=== PATIENT | male | born 1935 | race Caucasian/White ===

== ENCOUNTER 2016-08-22 20:13 | Emergency (ER) | payer OTHER ==
[2016-08-22 20:20] VITALS: BP 151/75; PULSE 65; TEMP 97.7; BMI 27.6
[2016-08-22] MEDS ORDERED: METOCLOPRAMIDE HCL INJECTION 10 MG/2 ML VIAL IVPUSH ONE (20:44)
--- NOTE | 2016-08-22 21:13 | PDOC ---
History of Present Illness - General History Source: Patient, Spouse, Old Records Exam Limitations: No Limitations - History of Present Illness Initial Comments: 08/22/16 21:21 The patient is an 80 year old male with past medical history of hypertension, NIDDM, hypothyroidism, GERD, cholecystectomy, who presents to the ED with complaints of frontal bilateral headache for the past few weeks. As per the patients , this symptom began as a lightheaded/dizzy feeling which has progressed into a headache and is now accompanied with blurred vision. Two weeks ago the patient was seen at [place] for similar symptoms and had a head CT performed which was unremarkable. He denies any recent illness, fever, chills , nausea, vomiting, diarrhea, cough, shortness of breath, chest pain, or urinary symptoms. PCP: Pam Queen <Lynne Méndez - Last Filed: 08/22/16 23:04> <Julio Lyons - Last Filed: 08/22/16 23:23> - General Chief Complaint: Headache Stated Complaint: HEADCAHE/STOMACH PAIN/LEGS NUMB Time Seen by Provider: 08/22/16 20:26 Past History <Lynne Méndez - Last Filed: 08/22/16 23:04> - Past Medical History Diabetes: Yes GI Disorders: Yes HTN: Yes Hypercholesterolemia: Yes Thyroid Disease: Yes (hypo) - Surgical History Cholecystectomy: Yes - Psycho/Social/Smoking Cessation Hx Anxiety: No Suicidal Ideation: No Smoking History: Never smoked Have you smoked in the past 12 months: No Information on smoking cessation initiated: No Hx Alcohol Use: No Drug/Substance Use Hx: No Substance Use Type: None <Julio Lyons - Last Filed: 08/22/16 23:23> - Past Medical History Allergies/Adverse Reactions: Allergies Allergy/AdvReac Type Severity Reaction Status Date / Time No Known Allergies Allergy Verified 08/22/16 20:20 Home Medications: Ambulatory Orders Budesonide [Pulmicort Flexhaler] 180 mcg IH BID PRN 08/18/16 Gabapentin 100 mg PO HS 08/18/16 Levothyroxine [Synthroid -] 75 mcg PO DAILY 08/18/16 Metoprolol Tartrate 12.5 mg PO AM 08/18/16 Metoprolol Tartrate 25 mg PO HS 08/18/16 Pantoprazole Sodium [Protonix] 40 mg PO DAILY 08/18/16 Sitagliptin Phosphate [Januvia] 50 mg PO DAILY 08/18/16 Valsartan [Diovan] 320 mg PO DAILY 08/18/16 Diphenhydramine HCl [Benadryl -] 50 mg PO Q8H PRN #28 capsule 08/22/16 Metoclopramide HCl [Reglan] 10 mg PO Q6H PRN #20 tablet 08/22/16 Review of Systems - Review of Systems Able to Perform ROS?: Yes Comments:: 08/22/16 21:22 GENERAL/CONSTITUTIONAL: No fever or chills. No weakness. HEAD, EYES, EARS, NOSE AND THROAT: No ear pain or discharge. No sore throat. CARDIOVASCULAR: No chest pain or shortness of breath. RESPIRATORY: No cough, wheezing, or hemoptysis. GASTROINTESTINAL: No nausea, vomiting, diarrhea or constipation. GENITOURINARY: No dysuria, frequency, or change in urination. MUSCULOSKELETAL: No joint or muscle swelling or pain. No neck or back pain. SKIN: No rash NEUROLOGIC: Present: headache, blurred vision No vertigo, loss of consciousness, or change in strength/sensation. ENDOCRINE: No increased thirst. No abnormal weight change. HEMATOLOGIC/LYMPHATIC: No anemia, easy bleeding, or history of blood clots. ALLERGIC/IMMUNOLOGIC: No hives or skin allergy. All Other Systems: Reviewed and Negative <yLnne Méndez - Last Filed: 08/22/16 23:04> *Physical Exam - Vital Signs Last Vital Signs Temp Pulse Resp BP Pulse Ox 97.7 F 65 18 151/75 100 08/22/16 20:18 08/22/16 20:18 08/22/16 20:18 08/22/16 20:18 08/22/16 20:18 - Physical Exam Comments: 08/22/16 21:23 GENERAL: Awake, alert, and fully oriented, in no acute distress HEAD: No signs of trauma EYES: PERRLA, EOMI, sclera anicteric, conjunctiva clear ENT: Auricles normal inspection, hearing grossly normal, nares patent, oropharynx clear without exudates. Moist mucosa NECK: Normal ROM, supple, no lymphadenopathy, JVD, or masses LUNGS: Breath sounds equal, clear to auscultation bilaterally. No wheezes, and no crackles HEART: Regular rate and rhythm, normal S1 and S2, no murmurs, rubs or gallops ABDOMEN: Soft, nontender, normoactive bowel sounds. No guarding, no rebound. No masses EXTREMITIES: Normal range of motion, no edema. No clubbing or cyanosis. No cords, erythema, or tenderness NEUROLOGICAL: Cranial nerves II through XII grossly intact. Normal speech, normal gait SKIN: Warm, Dry, normal turgor, no rashes or lesions noted. <[email or web address] - Last Filed: 08/22/16 23:04> - Vital Signs Last Vital Signs Temp Pulse Resp BP Pulse Ox 97.7 F 65 18 151/75 100 08/22/16 20:18 08/22/16 20:18 08/22/16 20:18 08/22/16 20:18 08/22/16 20:18 <Julio Lyons - Last Filed: 08/22/16 23:23> Heart Score/ECG Review - ECG Intrepretation Comment:: 08/22/16 23:04 ECG obtained at 22:54 Normal sinus, nonspecific T wave abnormality, prolonged QT Vent rate: 61 bpm <[email or web address] - Last Filed: 08/22/16 23:04> ED Treatment Course - LABORATORY CBC & Chemistry Diagram: 08/22/16 21:06 08/22/16 21:06 - ADDITIONAL ORDERS Additional order review: 08/22/16 21:06 RBC 4.66 MCV 88.9 MCHC 33.5 RDW 14.9 MPV 9.8 Neutrophils % 61.0 Lymphocytes % 21.1 D Monocytes % 12.5 H Eosinophils % 4.5 Basophils % 0.9 - RADIOLOGY Radiograph Interpretation: 08/22/16 21:[address] as reviewed by Dr. Garcia who reports no definite CT evidence of acute pathology. Mild periventricular and subcortical chronic microvascular ischemic changes are noted. A small right parietal cortical is seen which is probably post inflammatory/post infectious. <[email or web address] - Last Filed: 08/22/16 23:04> - LABORATORY CBC & Chemistry Diagram: 08/22/16 21:06 08/22/16 21:06 - RADIOLOGY Radiology Studies Ordered: Category Date Time Status HEAD CT WITHOUT CONTRAST [CT] Stat CT Scan 08/22/16 20:40 Completed CHEST X-RAY PORTABLE* [RAD] Stat Radiology 03/17/17 20:42 Ordered <Julio Lyons - Last Filed: 08/22/16 23:23> Medical Decision Making - Medical Decision Making This is an 80yo m with ongoing headache and no other complaints; his CT head is negative and PE reassuring. He has a negative evaluation and is feeling significant improvement of the headache, which has been ongoing for the last two days. He also reports pain of b/l legs with intermittent numbness. He suffers from DM and I have explained to him he has peripheral neuropathy, which he is already taking neurontin for but only 100mg once daily. I have encouraged him to increase to dose at least two times per day and to have follow up with neurology and his PMD within 24 hours. I have encouraged aggressive hydration, nutrition as tolerated and return if there is any change otherwise. 08/22/16 23:16 <Julio Lyons - Last Filed: 08/22/16 23:23> *DC/Admit/Observation/Transfer - Attestations Scribe Attestion: 08/22/16 21:23 Documentation prepared by Lynne Méndez, acting as biomedical repair technician for Julio Lyons MD.. <Lynne Méndez - Last Filed: 08/22/16 23:04> - Discharge Dispostion Admit: No Decision to Admit order Date/Time: 08/22/16 23:20 <Julio Lyons - Last Filed: 08/22/16 23:23> Diagnosis at time of Disposition: Migraine Qualifiers: Migraine type: without aura Status migrainosus presence: without status migrainosus Intractability: not intractable Qualified Code(s): G43.009 - Migraine without aura, not intractable, without status migrainosus - Discharge Dispostion Disposition: HOME Condition at time of disposition: Good - Prescriptions Prescriptions: Diphenhydramine HCl [Benadryl -] 50 mg PO Q8H PRN #28 capsule PRN Reason: Headache Metoclopramide HCl [Reglan] 10 mg PO Q6H PRN #20 tablet PRN Reason: Headache - Referrals Referrals: Pam Queen MD [Primary Care Provider] - - Patient Instructions Additional Instructions: At this time, your symptoms are likely related to a migraine-type headache and the medication prescribed should be helpful. Please follow up with your PMD within the next 24 hours for reevalaution. Also, as discussed, the dosing of the GABApentin (Neurontin) should be adjusted to help with your ongoing leg symptoms. If there is any change otherwise in your symptoms, please return immediately to the ED.
[2016-08-22 21:19] LABS: BASOPHIL 0.9 % (0-2.0); EOSINOPHIL 4.5 % (0-4.5); MCH 29.8 pg (25.7-33.7); MCHC 33.5 g/dl (32.0-35.9); MEAN CELL VOLUME 88.9 fl (80-96); MEAN PLT VOLUME 9.8 fl (7.5-11.1); PLATELET COUNT 186 K/MM3 (134-434); RDW 14.9 % (11.9-15.9); WHITE BLOOD COUNT 5.3 K/mm3 (4.0-10.0)
[2016-08-22 21:23] LABS: URINE APPEARANCE CLEAR; URINE BILIRUBIN NEGATIVE (NEGATIVE); URINE BLOOD NEGATIVE (NEGATIVE); URINE COLOR STRAW; URINE GLUCOSE (UA) NEGATIVE (NEGATIVE); URINE KETONE NEGATIVE (NEGATIVE); URINE LEUK ESTERASE NEGATIVE (NEGATIVE); URINE NITRITE NEGATIVE (NEGATIVE); URINE PROTEIN NEGATIVE (NEGATIVE); URINE UROBILINOGEN NEGATIVE E.U./dl (0.2-1.0)
[2016-08-22 21:29] LABS: INR 1.18 (0.82-1.09)
[2016-08-22] MEDS ORDERED: METOCLOPRAMIDE HCL INJECTION 10 MG/2 ML VIAL ONE (21:43)
[2016-08-22 21:52] LABS: ALBUMIN 3.6 g/dl (3.4-5.0); ANION GAP 8 (8-16); BILIRUBIN,TOTAL 0.6 mg/dL (0.2-1.0); CALCIUM 9.6 mg/dL (8.5-10.1); CO2 28 mmol/L (21-32); CREATININE 1.3 mg/dL (0.7-1.3); GLUCOSE,RANDOM 108 mg/dL (74-106); MAGNESIUM 2.3 mg/dL (1.8-2.4); PHOSPHOROUS 2.4 mg/dL (2.5-4.9); SGOT/AST 23 U/L (15-37); SGPT/ALT 60 U/L (12-78); TOT PROT 6.4 g/dl (6.4-8.2)
[2016-08-22 21:53] LABS: ALK PHOS 65 U/L (45-117); TROPONIN I < 0.02 ng/ml (0.00-0.05)
[2016-08-22] MEDS ORDERED: GABAPENTIN 100 MG CAPSULE (FP) PO ONE (23:15)
[2016-08-22] MEDS ORDERED: GABAPENTIN 100 MG CAPSULE (FP) ONE (23:42)
--- NOTE | 2016-08-24 11:23 | EKG ---
Test Reason : Blood Pressure : / mmHG Vent. Rate : 061 BPM Atrial Rate : 061 BPM P-R Int : 180 ms QRS Dur : 088 ms QT Int : 470 ms P-R-T Axes : 056 052 064 degrees QTc Int : 473 ms NORMAL SINUS RHYTHM NONSPECIFIC T WAVE ABNORMALITY PROLONGED QT ABNORMAL ECG NO PREVIOUS ECGS AVAILABLE Confirmed by BARBER VARGAS MD ([id number]) on 08/24/2016 11:23:38 AM Referred By: Confirmed By:BARBER VARGAS MD
== END 2016-08-23 00:01 | disposition home or self-care (01) ==
LOC: SUPCPDRO 20:13 → JER 20:13
PROC: 3E033GC Introduction of Other Therapeutic Substance into Peripheral Vein, Percutaneous Approach (ICD-10-PCS; principal; 2016-08-22)
DX: G43.009 Migraine without aura, not intractable, without status migrainosus (principal); I10 Essential (primary) hypertension; E11.9 Type 2 diabetes mellitus without complications; E03.9 Hypothyroidism, unspecified; K21.9 Gastro-esophageal reflux disease without esophagitis
CPT/HCPCS: 36415; 70450-TC; 71010-TC; 80053; 81003; 82550; 83690; 83735; 83880; 84100; 84484; 85025; 85610; 86850; 86900; 86901; 87040; 93005; 93010; 96374; 96375; 99282-25